=== PATIENT | female | born 1945 | race Caucasian/White ===

== ENCOUNTER 2020-02-08 13:14 | Inpatient (IN) | payer OTHER, BC ==
[2020-02-08] MEDS ORDERED: SODIUM CHLORIDE 0.9% 500 ML INFUS.BAG IV ONE ×2 (13:56→23:02)
[2020-02-08] MEDS ORDERED: ONDANSETRON 4 MG/2 ML VIAL IVPUSH ONE ×2 (13:56→22:00)
[2020-02-08] MEDS ORDERED: FAMOTIDINE 20 MG/50 ML IVPB 20 MG/50 ML MG IVPB ONE ×2 (13:56→14:06)
[2020-02-08] MEDS: MAG HYDROX/AL HYDROX/SIMETH 30 ML UNIT-DOSE CUP PO ONE ×2 (14:03→14:05)
[2020-02-08 14:12] LABS: VENOUS BASE EXCESS 2.5 mmol/L (-2-2); VENOUS O2 SATURATION 91.8 % (70-80); VENOUS PCO2 42.1 mmHg (38-52); VENOUS PH 7.427 (7.310-7.410)
[2020-02-08 14:17] LABS: BASO % 0.4 % (0-2.0); EOS % 0.1 % (0-4.5); HEMATOCRIT 44.2 % (32.4-45.2); HEMOGLOBIN 14.2 GM/dL (10.7-15.3); LYMPH % 16.8 % (8-40); MCH 25.5 pg (25.7-33.7); MCHC 32.1 g/dl (32.0-36.0); MEAN CELL VOLUME 79.6 fl (80-96); MEAN PLT VOLUME 9.5 fl (7.5-11.1); MONO % 3.8 % (3.8-10.2); NEUT % 78.9 % (42.8-82.8); PLATELET COUNT 269 K/MM3 (134-434); RBC 5.55 M/mm3 (3.60-5.2); WHITE BLOOD COUNT 8.5 K/mm3 (4.0-10.0)
[2020-02-08 14:29] LABS: INR 0.97 (0.83-1.09); PROTHROMBIN TIME (PATIENT) 11.9 SEC (9.7-13.0)
[2020-02-08 14:32] LABS: ACTIVATED PTT 28.8 SECONDS (25.2-36.5)
[2020-02-08 14:33] LABS: CALCIUM 9.3 mg/dL (8.5-10.1)
[2020-02-08 14:34] LABS: ALBUMIN 3.4 g/dl (3.4-5.0); BLOOD UREA NITROGEN 13.8 mg/dL (7-18)
[2020-02-08 14:37] LABS: CREATININE 0.7 mg/dL (0.55-1.3)
[2020-02-08 14:38] LABS: BILIRUBIN,TOTAL 0.5 mg/dL (0.2-1); TOT PROT 7.4 g/dl (6.4-8.2)
[2020-02-08] MEDS ORDERED: ACETAMINOPHEN 1000 MG/100 ML VIAL (NON FORMULARY) IVPB ONE (15:10)
[2020-02-08] MEDS ORDERED: ACETAMINOPHEN INJECTION 100 ML IVPB ONE (15:17)
[2020-02-08] MEDS ORDERED: morphine CARPU-JECT 4 MG/1 ML DISP.SYRIN IVPUSH ONE ×2 (20:30→23:01)
[2020-02-08] MEDS ORDERED: MORPHINE SULFATE 2 MG/ML VIAL ONE ×2 (20:44→23:03)
[2020-02-08] MEDS ORDERED: LIDOCAINE HCL 2% JELLY 10 ML CARTRIDGE ONE (21:12)
[2020-02-08] MEDS ORDERED: LIDOCAINE HCL 2% JELLY (30 ML/TUBE) TP ONE (21:49)
[2020-02-08] MEDS ORDERED: ONDANSETRON 4 MG/2 ML VIAL ONE (22:07)
[2020-02-09 03:30] VITALS: BMI 39.0
[2020-02-09] MEDS ORDERED: LORazepam 2 MG/ML SDV VIAL ONE (09:07)
[2020-02-09] MEDS ORDERED: LORazepam 2 MG/ML SDV VIAL IVPUSH ONE (09:15)
[2020-02-09] MEDS ORDERED: TETRACAINE/BENZOCAINE/BUTAMBEN 20 GM SPR TP ONE (09:29)
[2020-02-09] MEDS ORDERED: PT OWN MED DRAWER 7, Y5N ONE ×2 (10:36→15:39)
[2020-02-09] MEDS ORDERED: LORazepam 2 MG/ML SDV VIAL IVPUSH PRN (19:07)
[2020-02-09] MEDS: D5-1/2NS+20 MEQ KCL - 20 MEQ/1,000 ML INFUS.BAG IV SCH (23:41)
[2020-02-10] MEDS: BENZOCAINE/MENTH/CETYLPYRD CL 1 EACH LOZENGE MM PRN ×2 (05:57→21:28)
[2020-02-10] MEDS: D5-1/2NS+20 MEQ KCL - 20 MEQ/1,000 ML INFUS.BAG IV SCH ×2 (07:32→18:30)
[2020-02-10] MEDS: ACETAMINOPHEN 1000 MG/100 ML VIAL (NON FORMULARY) IVPB PRN (09:07)
[2020-02-10 11:56] LABS: HEMATOCRIT 38.7 % (32.4-45.2); HEMOGLOBIN 12.3 GM/dL (10.7-15.3); MCH 25.6 pg (25.7-33.7); MCHC 31.8 g/dl (32.0-36.0); MEAN CELL VOLUME 80.5 fl (80-96); MEAN PLT VOLUME 9.7 fl (7.5-11.1); PLATELET COUNT 237 K/MM3 (134-434); RBC 4.81 M/mm3 (3.60-5.2); RDW 15.7 % (11.6-15.6); WHITE BLOOD COUNT 6.2 K/mm3 (4.0-10.0)
[2020-02-10 12:22] LABS: CALCIUM 8.4 mg/dL (8.5-10.1)
[2020-02-10 12:23] LABS: ALBUMIN 2.9 g/dl (3.4-5.0); BLOOD UREA NITROGEN 8.6 mg/dL (7-18)
[2020-02-10 12:26] LABS: CREATININE 0.6 mg/dL (0.55-1.3)
[2020-02-10 12:28] LABS: BILIRUBIN,TOTAL 0.6 mg/dL (0.2-1); TOT PROT 6.2 g/dl (6.4-8.2)
[2020-02-10] MEDS ORDERED: PT OWN MED DRAWER 7, Y5N ONE (17:17)
[2020-02-10] MEDS ORDERED: IOHEXOL 300 MG/ML INFUS..BTL IV ONE (18:23)
[2020-02-10] MEDS: PANTOPRAZOLE SODIUM 40 MG VIAL IVPUSH SCH (21:29)
[2020-02-10] MEDS: HEPARIN NA (PORCINE) 5,000 UNITS/ML 1ML VIAL SQ SCH (21:29)
[2020-02-11] MEDS: ACETAMINOPHEN 1000 MG/100 ML VIAL (NON FORMULARY) IVPB PRN ×2 (00:22→11:28)
[2020-02-11] MEDS ORDERED: PT OWN MED DRAWER 7, Y5N ONE ×2 (09:14→13:03)
[2020-02-11] MEDS: HEPARIN NA (PORCINE) 5,000 UNITS/ML 1ML VIAL SQ SCH ×2 (10:04→21:19)
[2020-02-11] MEDS: PANTOPRAZOLE SODIUM 40 MG VIAL IVPUSH SCH (10:04)
[2020-02-11] MEDS: BENZOCAINE/MENTH/CETYLPYRD CL 1 EACH LOZENGE MM PRN ×3 (10:05→21:19)
[2020-02-11] MEDS: LEVOTHYROXINE SODIUM 100 MCG VIAL IVPUSH SCH (10:10)
[2020-02-11] MEDS: D5-1/2NS+20 MEQ KCL - 20 MEQ/1,000 ML INFUS.BAG IV SCH (21:20)
[2020-02-12] MEDS: BENZOCAINE/MENTH/CETYLPYRD CL 1 EACH LOZENGE MM PRN ×2 (00:53→06:22)
[2020-02-12] MEDS: LEVOTHYROXINE SODIUM 100 MCG VIAL IVPUSH SCH (06:05)
[2020-02-12 08:42] LABS: BASO % 1.1 % (0-2.0); HEMATOCRIT 38.7 % (32.4-45.2); HEMOGLOBIN 12.2 GM/dL (10.7-15.3); LYMPH % 32.2 % (8-40); MCH 25.7 pg (25.7-33.7); MCHC 31.6 g/dl (32.0-36.0); MEAN CELL VOLUME 81.3 fl (80-96); MEAN PLT VOLUME 9.6 fl (7.5-11.1); MONO % 7.9 % (3.8-10.2); NEUT % 54.8 % (42.8-82.8); PLATELET COUNT 212 K/MM3 (134-434); RBC 4.77 M/mm3 (3.60-5.2); RDW 15.6 % (11.6-15.6); WHITE BLOOD COUNT 5.4 K/mm3 (4.0-10.0)
[2020-02-12 08:55] LABS: POTASSIUM 3.8 mmol/L (3.5-5.1)
[2020-02-12 08:59] LABS: CALCIUM 8.6 mg/dL (8.5-10.1)
[2020-02-12 09:00] LABS: BLOOD UREA NITROGEN 7.3 mg/dL (7-18)
[2020-02-12 09:03] LABS: CREATININE 0.6 mg/dL (0.55-1.3)
[2020-02-12 09:04] LABS: TOT PROT 6.1 g/dl (6.4-8.2)
[2020-02-12] MEDS: PANTOPRAZOLE 40 MG TABLET PO SCH (09:46)
[2020-02-12] MEDS: HEPARIN NA (PORCINE) 5,000 UNITS/ML 1ML VIAL SQ SCH ×2 (09:48→21:04)
[2020-02-12] MEDS: D5-1/2NS+20 MEQ KCL - 20 MEQ/1,000 ML INFUS.BAG IV SCH ×3 (11:10→21:10)
[2020-02-12] MEDS ORDERED: ACETAMINOPHEN 500 MG TABLET (FP) PO PRN (15:43)
[2020-02-13] MEDS: ACETAMINOPHEN 1000 MG/100 ML VIAL (NON FORMULARY) IVPB PRN ×2 (03:09→16:17)
[2020-02-13] MEDS: LEVOTHYROXINE NA 125 MCG TABLET (FP) PO SCH (06:23)
[2020-02-13 08:52] LABS: BASO % 0.7 % (0-2.0); EOS % 2.6 % (0-4.5); HEMATOCRIT 40.9 % (32.4-45.2); HEMOGLOBIN 13.2 GM/dL (10.7-15.3); LYMPH % 28.6 % (8-40); MCHC 32.2 g/dl (32.0-36.0); MEAN CELL VOLUME 80.8 fl (80-96); MEAN PLT VOLUME 9.5 fl (7.5-11.1); NEUT % 60.1 % (42.8-82.8); PLATELET COUNT 245 K/MM3 (134-434); RBC 5.06 M/mm3 (3.60-5.2); RDW 15.6 % (11.6-15.6); WHITE BLOOD COUNT 4.9 K/mm3 (4.0-10.0)
[2020-02-13] MEDS ORDERED: DICYCLOMINE HCL 20 MG TABLET PO PRN (08:56)
[2020-02-13 09:12] LABS: CALCIUM 8.9 mg/dL (8.5-10.1)
[2020-02-13 09:13] LABS: BLOOD UREA NITROGEN 3.9 mg/dL (7-18)
[2020-02-13 09:16] LABS: CREATININE 0.7 mg/dL (0.55-1.3)
[2020-02-13] MEDS: PANTOPRAZOLE 40 MG TABLET PO SCH (10:05)
[2020-02-13] MEDS: HEPARIN NA (PORCINE) 5,000 UNITS/ML 1ML VIAL SQ SCH ×2 (10:05→21:32)
[2020-02-13] MEDS: D5-1/2NS+20 MEQ KCL - 20 MEQ/1,000 ML INFUS.BAG IV SCH (21:31)
[2020-02-14] MEDS: LEVOTHYROXINE NA 125 MCG TABLET (FP) PO SCH ×2 (06:21→09:14)
[2020-02-14] MEDS: D5-1/2NS+20 MEQ KCL - 20 MEQ/1,000 ML INFUS.BAG IV SCH ×3 (07:11→21:47)
[2020-02-14] MEDS: PANTOPRAZOLE 40 MG TABLET PO SCH (09:14)
[2020-02-14] MEDS: HEPARIN NA (PORCINE) 5,000 UNITS/ML 1ML VIAL SQ SCH ×2 (09:15→21:07)
[2020-02-15] MEDS: LEVOTHYROXINE NA 125 MCG TABLET (FP) PO SCH (06:22)
[2020-02-15] MEDS ORDERED: DICYCLOMINE HCL 10 MG CAPSULE PO PRN (07:50)
[2020-02-15] MEDS ORDERED: PT OWN MED DRAWER 7, Y5N ONE ×2 (09:04→11:02)
[2020-02-15] MEDS: HEPARIN NA (PORCINE) 5,000 UNITS/ML 1ML VIAL SQ SCH ×2 (10:15→21:20)
[2020-02-15] MEDS: PANTOPRAZOLE 40 MG TABLET PO SCH (10:16)
[2020-02-16 03:41] VITALS: BP 114/51; PULSE 66; TEMP 98.5
[2020-02-16] MEDS: LEVOTHYROXINE NA 125 MCG TABLET (FP) PO SCH (06:17)
[2020-02-16] MEDS: PANTOPRAZOLE 40 MG TABLET PO SCH (09:46)
[2020-02-16] MEDS: HEPARIN NA (PORCINE) 5,000 UNITS/ML 1ML VIAL SQ SCH (09:46)
== END 2020-02-16 11:45 | disposition home or self-care (01) | DRG 390 ==
LOC: JER 13:14 → JERBED 20:23 → J6S 02-09 01:51
PROVIDERS: ADMIT Internal Medicine; ATTEND Internal Medicine
PROC: 0D9670Z Drainage of Stomach with Drainage Device, Via Natural or Artificial Opening (ICD-10-PCS; principal; 2020-02-09)
DX: K56.600 Partial intestinal obstruction, unspecified as to cause (principal); I10 Essential (primary) hypertension; K21.9 Gastro-esophageal reflux disease without esophagitis; E03.9 Hypothyroidism, unspecified; G47.30 Sleep apnea, unspecified; K59.09 Other constipation; N28.1 Cyst of kidney, acquired; E11.43 Type 2 diabetes mellitus with diabetic autonomic (poly)neuropathy; K31.84 Gastroparesis; K57.90 Diverticulosis of intestine, part unspecified, without perforation or abscess without bleeding; H40.9 Unspecified glaucoma; K76.0 Fatty (change of) liver, not elsewhere classified; E66.9 Obesity, unspecified; Z68.39 Body mass index [BMI] 39.0-39.9, adult; K44.9 Diaphragmatic hernia without obstruction or gangrene; M48.061 Spinal stenosis, lumbar region without neurogenic claudication; R10.9 Unspecified abdominal pain
CPT/HCPCS: 36415; 71045-TC-FY; 74019-TC-FY; 74176-TC; 74177-TC; 80048; 80053; 81003; 82010; 82803; 83605; 83690; 84443; 84484; 85025; 85027; 85610; 85730; 93005; 93010; 99285-25; C9803; J0131; J1644; Q9967; U0003

== ENCOUNTER 2020-05-25 18:55 | Emergency (ER) | payer OTHER, BC ==
[2020-05-25 19:05] VITALS: BP 138/62; PULSE 70; TEMP 98.6; BMI 37.9
[2020-05-25] MEDS ORDERED: SODIUM CHLORIDE 500 ML IV STA (21:02)
[2020-05-25 21:37] LABS: BASO % 1.1 % (0-2.0); EOS % 3.1 % (0-4.5); HEMATOCRIT 40.3 % (32.4-45.2); HEMOGLOBIN 12.9 GM/dL (10.7-15.3); LYMPH % 32.8 % (8-40); MCH 25.8 pg (25.7-33.7); MEAN CELL VOLUME 80.7 fl (80-96); MEAN PLT VOLUME 9.8 fl (7.5-11.1); MONO % 8.9 % (3.8-10.2); NEUT % 54.1 % (42.8-82.8); PLATELET COUNT 224 K/MM3 (134-434); RBC 4.99 M/mm3 (3.60-5.2); RDW 15.4 % (11.6-15.6); WHITE BLOOD COUNT 4.5 K/mm3 (4.0-10.0)
[2020-05-25 21:46] LABS: INR 0.97 (0.83-1.09); PROTHROMBIN TIME (PATIENT) 11.7 SEC (9.7-13.0)
[2020-05-25 21:49] LABS: ACTIVATED PTT 30.3 SECONDS (25.2-36.5)
[2020-05-25 21:54] LABS: POTASSIUM 4.5 mmol/L (3.5-5.1)
[2020-05-25 21:57] LABS: ALBUMIN 3.3 g/dl (3.4-5.0); BLOOD UREA NITROGEN 14.9 mg/dL (7-18); CALCIUM 9.4 mg/dL (8.5-10.1)
[2020-05-25 22:00] LABS: CREATININE 0.7 mg/dL (0.55-1.3)
[2020-05-25 22:01] LABS: BILIRUBIN,TOTAL 0.2 mg/dL (0.2-1)
[2020-05-25 22:02] LABS: TOT PROT 6.8 g/dl (6.4-8.2)
[2020-05-26 02:35] LABS: URINE APPEARANCE CLEAR; URINE BILIRUBIN NEGATIVE (NEGATIVE); URINE COLOR YELLOW; URINE GLUCOSE (UA) NEGATIVE (NEGATIVE); URINE KETONE NEGATIVE (NEGATIVE); URINE LEUK ESTERASE NEGATIVE (NEGATIVE); URINE NITRITE NEGATIVE (NEGATIVE); URINE PROTEIN NEGATIVE (NEGATIVE); URINE UROBILINOGEN 0.2 mg/dL (0.2-1.0)
== END 2020-05-26 02:35 | disposition home or self-care (01) ==
LOC: JER 18:55
PROC: 3E0337Z Introduction of Electrolytic and Water Balance Substance into Peripheral Vein, Percutaneous Approach (ICD-10-PCS; principal; 2020-05-25)
DX: R10.30 Lower abdominal pain, unspecified (principal)
CPT/HCPCS: 36415; 74177-TC; 80053; 81003; 82272; 83690; 85025; 85610; 85730; 93005; 93010; 99285-25

== ENCOUNTER 2020-08-17 02:52 | Inpatient (IN) | payer OTHER, BC ==
[2020-08-17 03:23] VITALS: BMI 38.2
[2020-08-17] MEDS ORDERED: ONDANSETRON 4 MG/2 ML VIAL IVPUSH ONE ×2 (05:02→13:33)
[2020-08-17] MEDS ORDERED: ACETAMINOPHEN 1000 MG/100 ML VIAL (NON FORMULARY) IVPB ONE (05:02)
[2020-08-17] MEDS ORDERED: ONDANSETRON 4 MG/2 ML VIAL ONE ×2 (05:13→13:12)
[2020-08-17] MEDS ORDERED: ACETAMINOPHEN INJECTION 100 ML IVPB ONE (05:13)
[2020-08-17 05:22] LABS: BASO % 0.3 % (0-2.0); EOS % 0.2 % (0-4.5); HEMATOCRIT 42.4 % (32.4-45.2); HEMOGLOBIN 13.6 GM/dL (10.7-15.3); LYMPH % 5.9 % (8-40); MCH 25.6 pg (25.7-33.7); MCHC 32.1 g/dl (32.0-36.0); MEAN CELL VOLUME 79.7 fl (80-96); MEAN PLT VOLUME 9.5 fl (7.5-11.1); MONO % 3.1 % (3.8-10.2); NEUT % 90.5 % (42.8-82.8); PLATELET COUNT 223 10^3/uL (134-434); RBC 5.32 M/mm3 (3.60-5.2); RDW 14.7 % (11.6-15.6)
[2020-08-17] MEDS ORDERED: FAMOTIDINE 20 MG/50 ML IVPB 20 MG/50 ML MG IVPB ONE ×2 (05:24→05:45)
[2020-08-17] MEDS ORDERED: SODIUM CHLORIDE 1,000 ML IV STA (05:24)
[2020-08-17] MEDS ORDERED: MAG HYDROX/AL HYDROX/SIMETH 30 ML UNIT-DOSE CUP PO ONE (05:24)
[2020-08-17 05:33] LABS: INR 0.95 (0.83-1.09); PROTHROMBIN TIME (PATIENT) 11.7 SEC (9.7-13.0)
[2020-08-17 05:36] LABS: ACTIVATED PTT 29.9 SECONDS (25.2-36.5)
[2020-08-17 05:44] LABS: URINE APPEARANCE CLEAR; URINE BILIRUBIN NEGATIVE (NEGATIVE); URINE COLOR YELLOW; URINE GLUCOSE (UA) NEGATIVE (NEGATIVE); URINE KETONE NEGATIVE (NEGATIVE); URINE LEUK ESTERASE NEGATIVE (NEGATIVE); URINE NITRITE NEGATIVE (NEGATIVE); URINE PROTEIN NEGATIVE (NEGATIVE); URINE UROBILINOGEN 0.2 mg/dL (0.2-1.0)
[2020-08-17] MEDS ORDERED: MAG HYDROX/AL HYDROX/SIMETH 30 ML UNIT-DOSE CUP ONE (05:45)
[2020-08-17 05:57] LABS: CALCIUM 8.8 mg/dL (8.5-10.1)
[2020-08-17 05:58] LABS: ALBUMIN 3.5 g/dl (3.4-5.0); BLOOD UREA NITROGEN 16.6 mg/dL (7-18)
[2020-08-17 05:59] LABS: LACTIC ACID 2.3 mmol/L (0.4-2.0)
[2020-08-17 06:01] LABS: CREATININE 0.7 mg/dL (0.55-1.3)
[2020-08-17 06:02] LABS: BILIRUBIN,TOTAL 0.2 mg/dL (0.2-1); TOT PROT 6.9 g/dl (6.4-8.2)
[2020-08-17] MEDS ORDERED: SODIUM CHLORIDE 0.9% 500 ML INFUS.BAG IV ONE ×2 (06:33→10:39)
[2020-08-17 10:29] LABS: LACTIC ACID 2.6 mmol/L (0.4-2.0)
[2020-08-17] MEDS ORDERED: TETRACAINE/BENZOCAINE/BUTAMBEN 20 GM SPR TP ONE (13:33)
[2020-08-17] MEDS ORDERED: MORPHINE SULFATE 2 MG/ML VIAL IVPUSH PRN (18:50)
[2020-08-17] MEDS: SODIUM CHLORIDE 1,000 ML IV SCH (19:28)
[2020-08-17] MEDS: METOCLOPRAMIDE HCL INJECTION 10 MG/2 ML VIAL IVPUSH PRN (19:37)
[2020-08-18] MEDS ORDERED: ACETAMINOPHEN 1000 MG/100 ML VIAL (NON FORMULARY) IVPB ONE (01:06)
[2020-08-18] MEDS: LEVOTHYROXINE NA 125 MCG TABLET (FP) PO SCH (06:05)
[2020-08-18 09:07] LABS: HEMATOCRIT 35.4 % (32.4-45.2); HEMOGLOBIN 11.5 GM/dL (10.7-15.3); MCH 25.6 pg (25.7-33.7); MCHC 32.4 g/dl (32.0-36.0); MEAN CELL VOLUME 79.1 fl (80-96); PLATELET COUNT 188 10^3/uL (134-434); RBC 4.48 M/mm3 (3.60-5.2); WHITE BLOOD COUNT 4.6 K/mm3 (4.0-10.0)
[2020-08-18 09:27] LABS: CALCIUM 7.9 mg/dL (8.5-10.1)
[2020-08-18 09:28] LABS: BLOOD UREA NITROGEN 13.8 mg/dL (7-18); MAGNESIUM 2.2 mg/dL (1.8-2.4)
[2020-08-18 09:31] LABS: CREATININE 0.6 mg/dL (0.55-1.3); PHOSPHOROUS 2.7 mg/dL (2.5-4.9)
[2020-08-18] MEDS ORDERED: DEXTROSE 5%-WATER - 50 ML IVPB ONE (09:31)
[2020-08-18] MEDS ORDERED: cefTRIAXone SODIUM 1 GM VIAL ONE (09:31)
[2020-08-18 09:32] LABS: TOT PROT 5.4 g/dl (6.4-8.2)
[2020-08-18] MEDS: CEFTRIAXONE 1 GM in DEXTROSE 5%-WATER - 50 ML IVPB SCH (09:40)
[2020-08-18] MEDS: ENOXAPARIN NA (PORCINE) 40 MG/0.4 ML DISP.SYRIN SQ SCH ×2 (09:41→10:01)
[2020-08-18] MEDS: amLODIPine BESYLATE 5 MG TABLET (FP) PO SCH (09:41)
[2020-08-18] MEDS: PANTOPRAZOLE 40 MG TABLET PO SCH (09:41)
[2020-08-18] MEDS: SODIUM CHLORIDE 1,000 ML IV SCH ×3 (09:43→23:56)
[2020-08-18 09:56] LABS: ALBUMIN 2.7 g/dl (3.4-5.0)
[2020-08-18] MEDS: METOCLOPRAMIDE HCL INJECTION 10 MG/2 ML VIAL IVPUSH PRN (12:58)
[2020-08-19] MEDS: LEVOTHYROXINE NA 125 MCG TABLET (FP) PO SCH (06:38)
[2020-08-19] MEDS ORDERED: DEXTROSE 5%-WATER - 50 ML IVPB ONE (09:26)
[2020-08-19] MEDS ORDERED: cefTRIAXone SODIUM 1 GM VIAL ONE (09:26)
[2020-08-19] MEDS: ENOXAPARIN NA (PORCINE) 40 MG/0.4 ML DISP.SYRIN SQ SCH (09:28)
[2020-08-19] MEDS: CEFTRIAXONE 1 GM in DEXTROSE 5%-WATER - 50 ML IVPB SCH (09:40)
[2020-08-19] MEDS: amLODIPine BESYLATE 5 MG TABLET (FP) PO SCH (09:40)
[2020-08-19] MEDS: PANTOPRAZOLE 40 MG TABLET PO SCH (09:40)
[2020-08-19] MEDS: SODIUM CHLORIDE 1,000 ML IV SCH (13:09)
[2020-08-19] MEDS ORDERED: SIMETHICONE 80 MG TAB.CHEW (FP) PO PRN (14:04)
[2020-08-20] MEDS: SODIUM CHLORIDE 1,000 ML IV SCH (01:09)
[2020-08-20] MEDS: LEVOTHYROXINE NA 125 MCG TABLET (FP) PO SCH (06:13)
[2020-08-20 08:59] VITALS: BP 145/68; PULSE 54; TEMP 98.9
[2020-08-20] MEDS ORDERED: cefTRIAXone SODIUM 1 GM VIAL ONE (09:08)
[2020-08-20] MEDS ORDERED: DEXTROSE 5%-WATER - 50 ML IVPB ONE (09:08)
[2020-08-20] MEDS: PANTOPRAZOLE 40 MG TABLET PO SCH (09:13)
[2020-08-20] MEDS: CEFTRIAXONE 1 GM in DEXTROSE 5%-WATER - 50 ML IVPB SCH (09:13)
[2020-08-20] MEDS: amLODIPine BESYLATE 5 MG TABLET (FP) PO SCH (09:13)
[2020-08-20] MEDS: ENOXAPARIN NA (PORCINE) 40 MG/0.4 ML DISP.SYRIN SQ SCH (09:15)
== END 2020-08-20 11:25 | disposition home or self-care (01) | DRG 392 ==
LOC: JER 02:52 → JERBED 09:46 → J5S 15:18 → OBSVTOIN 18:50
PROVIDERS: ATTEND Internal Medicine
DX: K52.9 Noninfective gastroenteritis and colitis, unspecified (principal); E87.2 Acidosis; R10.9 Unspecified abdominal pain; E78.5 Hyperlipidemia, unspecified; Z90.89 Acquired absence of other organs; E03.9 Hypothyroidism, unspecified; I10 Essential (primary) hypertension; K21.9 Gastro-esophageal reflux disease without esophagitis; E66.01 Morbid (severe) obesity due to excess calories; Z68.38 Body mass index [BMI] 38.0-38.9, adult; E86.0 Dehydration
CPT/HCPCS: 36415; 70450-TC; 71045-TC-FY; 74018-TC-FY; 74177-TC; 80053; 81003; 83036; 83605; 83690; 83735; 84100; 85025; 85027; 85610; 85730; 86850; 86900; 86901; 87040; 87086; 93005; 93010; 97116-GP; 97161-GP; 99285-25; C9803; G0378; J0131; Q9967; U0003; U0005

== ENCOUNTER 2022-07-30 10:34 | Emergency (ER) | payer OTHER, BC ==
[2022-07-30 10:43] VITALS: RESP 18; BMI 39.7
[2022-07-30] MEDS ORDERED: ONDANSETRON 4 MG/2 ML VIAL IVPUSH ONE ×3 (11:40→16:58)
[2022-07-30] MEDS ORDERED: ONDANSETRON 4 MG/2 ML VIAL ONE ×2 (11:50→17:30)
[2022-07-30] MEDS ORDERED: ACETAMINOPHEN 1000 MG/100 ML BAG IVPB ONE ×3 (11:59→16:58)
[2022-07-30] MEDS ORDERED: ACETAMINOPHEN INJECTION 100 ML IVPB ONE ×2 (12:09→17:30)
[2022-07-30 12:31] LABS: HEMATOCRIT 41.3 % (32.4-45.2); HEMOGLOBIN 13.7 GM/dL (10.7-15.3); MCH 25.8 pg (25.7-33.7); MEAN CELL VOLUME 78.2 fl (80-96); MEAN PLT VOLUME 8.6 fl (7.5-11.1); PLATELET COUNT 237 10^3/uL (134-434); RBC 5.29 M/mm3 (3.60-5.2); RDW 15.2 % (11.6-15.6); WHITE BLOOD COUNT 7.2 K/mm3 (4.0-10.0)
[2022-07-30 12:51] LABS: POTASSIUM 4.1 mmol/L (3.5-5.1)
[2022-07-30 12:53] LABS: ALBUMIN 3.2 g/dl (3.4-5.0); CALCIUM 8.7 mg/dL (8.5-10.1)
[2022-07-30 12:54] LABS: BLOOD UREA NITROGEN 15.4 mg/dL (7-18)
[2022-07-30 12:57] LABS: CREATININE 0.7 mg/dL (0.55-1.3)
[2022-07-30 12:58] LABS: BILIRUBIN,TOTAL 0.4 mg/dL (0.2-1); TOT PROT 6.5 g/dl (6.4-8.2)
[2022-07-30 20:09] LABS: EPI CELLS >36 /uL (0-25.1); HYALINE CASTS 6 /uL (0-3.1); PH,URINE 5.5 (5.0-8.0); URINE APPEARANCE CLEAR; URINE BACTERIA 1390 /uL (0-1359); URINE BILIRUBIN NEGATIVE (NEGATIVE); URINE COLOR YELLOW; URINE GLUCOSE (UA) NEGATIVE (NEGATIVE); URINE KETONE TRACE (NEGATIVE); URINE LEUK ESTERASE NEGATIVE (NEGATIVE); URINE NITRITE NEGATIVE (NEGATIVE); URINE PROTEIN TRACE (NEGATIVE); URINE UROBILINOGEN 0.2 mg/dL (0.2-1.0); URINE WBC 35 /uL (0-25.8)
[2022-07-30] MEDS ORDERED: FAMOTIDINE 20 MG/50 ML IVPB 20 MG/50 ML MG IVPB ONE ×2 (20:27→20:47)
[2022-07-30 20:40] VITALS: BP 133/56; PULSE 77; TEMP 99.1
[2022-07-30] MEDS ORDERED: ONDANSETRON *ODT* 4 MG TABLET SL ONE (21:46)
[2022-07-30] MEDS ORDERED: ONDANSETRON *ODT* 4 MG TABLET ONE (21:47)
[2022-07-30 22:16] LABS: URINE RBC 18.5 /uL (0-23.9)
== END 2022-07-30 21:49 | disposition home or self-care (01) ==
LOC: JER 10:34
PROC: 3E033GC Introduction of Other Therapeutic Substance into Peripheral Vein, Percutaneous Approach (ICD-10-PCS; principal; 2022-07-30)
PROC: 3E033NZ Introduction of Analgesics, Hypnotics, Sedatives into Peripheral Vein, Percutaneous Approach (ICD-10-PCS; 2022-07-30)
PROC: 3E033GC Introduction of Other Therapeutic Substance into Peripheral Vein, Percutaneous Approach (ICD-10-PCS; 2022-07-30)
PROC: 3E033NZ Introduction of Analgesics, Hypnotics, Sedatives into Peripheral Vein, Percutaneous Approach (ICD-10-PCS; 2022-07-30)
PROC: 3E033GC Introduction of Other Therapeutic Substance into Peripheral Vein, Percutaneous Approach (ICD-10-PCS; 2022-07-30)
DX: R10.32 Left lower quadrant pain (principal); R11.2 Nausea with vomiting, unspecified; R19.7 Diarrhea, unspecified; R68.83 Chills (without fever); R05.9 Cough, unspecified; H92.01 Otalgia, right ear; R09.81 Nasal congestion
CPT/HCPCS: 36415; 71045-TC-FY; 74177-TC; 80053; 81003; 85027; 87086; 99285-25; Q0162; Q9967

== ENCOUNTER 2023-03-02 01:38 | Emergency (ER) | payer OTHER, BC ==
[2023-03-02 01:52] VITALS: BP 164/72; PULSE 76; RESP 24; TEMP 98.4; BMI 36.3
[2023-03-02 03:09] LABS: BASO % 0.9 % (0-2.0); EOS % 1.5 % (0-4.5); HEMATOCRIT 40.2 % (32.4-45.2); HEMOGLOBIN 12.9 GM/dL (10.7-15.3); LYMPH % 20.7 % (8-40); MCH 25.5 pg (25.7-33.7); MCHC 32.1 g/dl (32.0-36.0); MEAN CELL VOLUME 79.5 fl (80-96); MEAN PLT VOLUME 8.7 fl (7.5-11.1); MONO % 7.7 % (3.8-10.2); NEUT % 69.2 % (42.8-82.8); PLATELET COUNT 272 10^3/uL (134-434); RBC 5.06 M/mm3 (3.60-5.2); RDW 14.7 % (11.6-15.6); WHITE BLOOD COUNT 7.6 K/mm3 (4.0-10.0)
[2023-03-02 03:19] LABS: INR 1.03 (0.83-1.09); PROTHROMBIN TIME (PATIENT) 11.9 SEC (9.7-13.0)
[2023-03-02 03:22] LABS: ACTIVATED PTT 26.9 SECONDS (25.2-36.5)
[2023-03-02 03:29] LABS: BLOOD UREA NITROGEN 15.8 mg/dL (7-18); CALCIUM 8.6 mg/dL (8.5-10.1)
[2023-03-02 03:32] LABS: CREATININE 0.7 mg/dL (0.55-1.3)
[2023-03-02 03:34] LABS: BILIRUBIN,TOTAL 0.5 mg/dL (0.2-1); TOT PROT 6.7 g/dl (6.4-8.2)
[2023-03-02 03:37] LABS: N-TERMINAL BNP 167.8 pg/ml (5-450)
[2023-03-02] MEDS ORDERED: SODIUM CHLORIDE 0.9% 500 ML INFUS.BAG IV ONE (03:49)
[2023-03-02 04:54] LABS: EPI CELLS 29 /uL (0-25.1); HYALINE CASTS 1 /uL (0-3.1); URINE APPEARANCE CLEAR; URINE BACTERIA 1884 /uL (0-1359); URINE BILIRUBIN NEGATIVE (NEGATIVE); URINE COLOR YELLOW; URINE GLUCOSE (UA) NEGATIVE (NEGATIVE); URINE KETONE NEGATIVE (NEGATIVE); URINE LEUK ESTERASE TRACE (NEGATIVE); URINE NITRITE NEGATIVE (NEGATIVE); URINE PROTEIN NEGATIVE (NEGATIVE); URINE RBC 12 /uL (0-23.9); URINE UROBILINOGEN 0.2 mg/dL (0.2-1.0); URINE WBC 50 /uL (0-25.8)
[2023-03-02 05:08] LABS: POTASSIUM 5.1 mmol/L (3.5-5.1)
[2023-03-02 05:09] LABS: CALCIUM 8.9 mg/dL (8.5-10.1)
[2023-03-02 05:10] LABS: BLOOD UREA NITROGEN 15.8 mg/dL (7-18)
[2023-03-02 05:13] LABS: CREATININE 0.7 mg/dL (0.55-1.3)
[2023-03-02] MEDS ORDERED: ACETAMINOPHEN 1000 MG/100 ML BAG IVPB ONE (05:22)
[2023-03-02] MEDS ORDERED: ACETAMINOPHEN INJECTION 100 ML IVPB ONE (06:01)
== END 2023-03-02 07:04 | disposition home or self-care (01) ==
LOC: JER 01:38
PROC: 3E033NZ Introduction of Analgesics, Hypnotics, Sedatives into Peripheral Vein, Percutaneous Approach (ICD-10-PCS; principal; 2023-03-02)
DX: M54.9 Dorsalgia, unspecified (principal); R06.02 Shortness of breath; R05.9 Cough, unspecified; R50.9 Fever, unspecified; J18.9 Pneumonia, unspecified organism; R09.1 Pleurisy; Z20.822 Contact with and (suspected) exposure to COVID-19
CPT/HCPCS: 0241U-QW; 36415; 71046-TC-FY; 71275-TC; 80048; 80053; 81003; 83735; 83880; 84484; 85025; 85610; 85730; 87086; 93005; 93010; 99285-25

== ENCOUNTER 2023-05-21 08:25 | Emergency (ER) | payer OTHER, BC ==
[2023-05-21 08:45] VITALS: BP 159/63; PULSE 96; RESP 18; TEMP 99.5; BMI 36.8
[2023-05-21] MEDS ORDERED: ACETAMINOPHEN INJECTION 100 ML IVPB ONE ×2 (10:09→10:20)
[2023-05-21] MEDS: SODIUM CHLORIDE 500 ML IV STA (10:13)
[2023-05-21] MEDS: ACETAMINOPHEN 1000 MG/100 ML BAG IVPB ONE (10:13)
[2023-05-21 10:45] LABS: BASO % 0.3 % (0-2.0); HEMATOCRIT 40.2 % (32.4-45.2); HEMOGLOBIN 13.2 GM/dL (10.7-15.3); LYMPH % 6.3 % (8-40); MCH 25.9 pg (25.7-33.7); MCHC 32.9 g/dl (32.0-36.0); MEAN CELL VOLUME 78.7 fl (80-96); MEAN PLT VOLUME 9.3 fl (7.5-11.1); MONO % 3.8 % (3.8-10.2); NEUT % 89.6 % (42.8-82.8); PLATELET COUNT 254 10^3/uL (134-434); RBC 5.11 M/mm3 (3.60-5.2); RDW 14.9 % (11.6-15.6); WHITE BLOOD COUNT 13.5 K/mm3 (4.0-10.0)
[2023-05-21 10:50] LABS: URINE APPEARANCE CLEAR; URINE BILIRUBIN NEGATIVE (NEGATIVE); URINE COLOR YELLOW; URINE GLUCOSE (UA) TRACE (NEGATIVE); URINE KETONE NEGATIVE (NEGATIVE); URINE LEUK ESTERASE NEGATIVE (NEGATIVE); URINE NITRITE NEGATIVE (NEGATIVE); URINE PROTEIN NEGATIVE (NEGATIVE); URINE UROBILINOGEN 0.2 mg/dL (0.2-1.0)
[2023-05-21 11:05] LABS: POTASSIUM 4.1 mmol/L (3.5-5.1)
[2023-05-21 11:07] LABS: CALCIUM 9.1 mg/dL (8.5-10.1)
[2023-05-21 11:08] LABS: ALBUMIN 3.4 g/dl (3.4-5.0); BLOOD UREA NITROGEN 15.8 mg/dL (7-18)
[2023-05-21 11:09] LABS: THROAT:GRP A STREP NOT DETECTED (NOTDETECTED)
[2023-05-21 11:11] LABS: CREATININE 0.7 mg/dL (0.55-1.3)
[2023-05-21 11:13] LABS: BILIRUBIN,TOTAL 0.4 mg/dL (0.2-1); TOT PROT 6.8 g/dl (6.4-8.2)
== END 2023-05-21 12:13 | disposition home or self-care (01) ==
LOC: JER 08:25
PROC: 3E033NZ Introduction of Analgesics, Hypnotics, Sedatives into Peripheral Vein, Percutaneous Approach (ICD-10-PCS; principal; 2023-05-21)
DX: R50.9 Fever, unspecified (principal); R51.9 Headache, unspecified; R11.0 Nausea; M79.10 Myalgia, unspecified site; Z20.822 Contact with and (suspected) exposure to COVID-19
CPT/HCPCS: 0241U-QW; 36415; 70450-TC; 71046-TC-FY; 80053; 81003; 84484; 85025; 87040; 87086; 87651; 93005; 93010; 96374; 99285-25; J0131

== ENCOUNTER 2024-05-15 12:25 | Emergency (ER) | payer OTHER, BC ==
[2024-05-15 12:44] VITALS: RESP 16; BMI 37.4
[2024-05-15] MEDS ORDERED: FAMOTIDINE 20 MG/50 ML IVPB 20 MG/50 ML MG IVPB ONE (15:02)
[2024-05-15] MEDS ORDERED: ONDANSETRON 4 MG/2 ML VIAL ONE (15:02)
[2024-05-15] MEDS ORDERED: ACETAMINOPHEN INJECTION 100 ML ONE (15:02)
[2024-05-15] MEDS: ACETAMINOPHEN 1000 MG/100 ML BAG IVPB ONE (15:05)
[2024-05-15] MEDS: LACTATED RINGERS SOLUTION 1000 ML INFUS.BAG IV ONE (15:05)
[2024-05-15] MEDS: FAMOTIDINE 20 MG/50 ML IVPB 20 MG/50 ML MG IVPB ONE (15:05)
[2024-05-15] MEDS: ONDANSETRON 4 MG/2 ML VIAL IVPUSH ONE (15:05)
[2024-05-15 15:14] LABS: ABSOLUTE IMMATURE GRANULOCYTES 0.04 x10^3/uL (0.0-0.031); BASOPHILS # 0.05 x10^3/uL (0.01-0.08); EOSINOPHIL % 1.9 % (0.7-5.8); HEMATOCRIT 40.9 % (34.1-44.9); HEMOGLOBIN 12.9 g/dL (11.2-15.7); MCHC 31.5 g/dl (32.2-35.5); MEAN CELL VOLUME 79.9 fl (79.4-94.8); MEAN PLT VOLUME 10.5 fl (9.4-12.3); MONOCYTE # 0.43 x10^3/uL (0.24-0.86); MONOCYTE % 8.2 % (4.7-12.5); PLATELET COUNT # 226 x10^3/uL (182-369); RDW 14.7 % (12.4-16.6)
[2024-05-15 15:23] LABS: INR 0.99 (0.83-1.09); PH,URINE 5.5 (5.0-8.0); PROTHROMBIN TIME (PATIENT) 10.9 SEC (9.7-13.0); URINE APPEARANCE CLEAR; URINE BILIRUBIN NEGATIVE (NEGATIVE); URINE COLOR YELLOW; URINE GLUCOSE (UA) NEGATIVE (NEGATIVE); URINE KETONE NEGATIVE (NEGATIVE); URINE LEUK ESTERASE NEGATIVE (NEGATIVE); URINE NITRITE NEGATIVE (NEGATIVE); URINE PROTEIN NEGATIVE (NEGATIVE); URINE UROBILINOGEN 0.2 mg/dL (0.2-1.0)
[2024-05-15 15:25] LABS: ACTIVATED PTT 30.7 SECONDS (25.2-36.5)
[2024-05-15 15:46] LABS: POTASSIUM 4.4 mmol/L (3.5-5.1)
[2024-05-15 15:48] LABS: ALBUMIN 3.3 g/dl (3.4-5.0); CALCIUM 9.3 mg/dL (8.5-10.1)
[2024-05-15 15:49] LABS: BLOOD UREA NITROGEN 15.3 mg/dL (7-18); MAGNESIUM 2.1 mg/dL (1.8-2.4)
[2024-05-15 15:52] LABS: CREATININE 0.6 mg/dL (0.55-1.3)
[2024-05-15 15:53] LABS: BILIRUBIN,TOTAL 0.4 mg/dL (0.2-1); TOT PROT 6.7 g/dl (6.4-8.2)
[2024-05-15 19:08] VITALS: BP 159/66; PULSE 65; TEMP 97.9
== END 2024-05-15 19:05 | disposition home or self-care (01) ==
LOC: JER 12:25
PROC: 3E033GC Introduction of Other Therapeutic Substance into Peripheral Vein, Percutaneous Approach (ICD-10-PCS; principal; 2024-05-15)
PROC: 3E033NZ Introduction of Analgesics, Hypnotics, Sedatives into Peripheral Vein, Percutaneous Approach (ICD-10-PCS; 2024-05-15)
PROC: 3E033GC Introduction of Other Therapeutic Substance into Peripheral Vein, Percutaneous Approach (ICD-10-PCS; 2024-05-15)
DX: K52.9 Noninfective gastroenteritis and colitis, unspecified (principal); R10.32 Left lower quadrant pain; R11.0 Nausea; R10.31 Right lower quadrant pain
CPT/HCPCS: 36415; 74177-TC; 80053; 81003; 83690; 83735; 84443; 85025; 85610; 85730; 87086; 93005; 93010; 99285-25; J0131; Q9967